=== PATIENT | male | born 1995 | race African-American/Black ===

== ENCOUNTER 2021-12-03 08:23 | Day surgery (SDC) | payer OTHER ==
[~2021-12-03] VITALS: Ht 175.3 cm; Wt 81.2 kg
[~2021-12-03 08:23] MED LIST: ceFAZolin SOD 2 GM in IV 1 EA IV ONE; vitamin
[2021-12-03] MEDS ORDERED: LR 1,000 ML IV SCH ×4 (08:50→15:15)
[2021-12-03] MEDS ORDERED: fentaNYL 100 MCG/2 ML INJECTION IV PRN ×2 (09:25→13:55)
[2021-12-03] MEDS ORDERED: ONDANSETRON 4MG/2ML VIAL IV PRN ×2 (09:25→13:55)
[2021-12-03] MEDS ORDERED: oxyCODONE 5MG TAB PO PRN ×2 (09:25→13:55)
[2021-12-03] MEDS ORDERED: METOCLOPRAMIDE INJ 10MG/2ML VIAL (J2765 PER 1) As Ordered ONE (11:14)
[2021-12-03] MEDS ORDERED: LIDOCAINE 2% 100MG/5ML SDV (FOR ANES.) As Ordered ONE (11:14)
[2021-12-03] MEDS ORDERED: MIDAZOLAM INJ 2MG/2ML VIAL (J2250 PER 1MG) As Ordered ONE (11:14)
[2021-12-03] MEDS ORDERED: fentaNYL 100 MCG/2 ML INJECTION As Ordered ONE (11:14)
[2021-12-03] MEDS ORDERED: propofoL 200 MG/20 ML VIAL As Ordered ONE (11:14)
[2021-12-03] MEDS ORDERED: KETOROLAC 60MG 2ML VIAL As Ordered ONE (11:14)
[2021-12-03] MEDS ORDERED: dexameTHASONE 4 MG/ML 1ML VIAL (J1100 PER 1MG) As Ordered ONE (11:14)
[2021-12-03] MEDS ORDERED: ONDANSETRON 4MG/2ML VIAL As Ordered ONE (11:14)
[2021-12-03] MEDS ORDERED: BUPIVACAINE/EPIN 0.25% 30 ML VIAL As Ordered ONE (12:02)
[2021-12-03] MEDS ORDERED: TRANEXAMIC ACID 100 MG/ML 10ML VIAL As Ordered ONE (12:25)
[2021-12-03] MEDS ORDERED: BUPIVACAINE LIPOSOME/PF 1.3% 20ML VIAL (13.3MG/ML)(EXPAREL) As Ordered ONE (12:34)
[2021-12-03 14:55] VITALS: BP 127/77
== END 2021-12-03 15:03 | disposition home or self-care (01) ==
LOC: M SDC 08:23
PROVIDERS: ATTEND Orthopaedic Surgery
DX: M79.A21 Nontraumatic compartment syndrome of right lower extremity (principal)
CPT/HCPCS: 27892; C9290; J0690; J1100; J1885; J2250; J2405; J2765; J3010

== ENCOUNTER → 2022-04-22 | Outpatient (REF) | payer OTHER ==
[~2022-04-22] MED LIST changes: -ceFAZolin SOD 2 GM in IV 1 EA IV ONE
== END ==
LOC: M PLAIMG 10:44
PROVIDERS: ATTEND Internal Medicine
DX: R06.02 Shortness of breath (principal)

== ENCOUNTER 2022-09-08 20:07 | Inpatient (IN) | payer OTHER ==
[~2022-09-08] VITALS: Ht 175.3 cm; Wt 87.3 kg
[2022-09-08 20:45] LABS: BASO % 0.1 % (0.0-1.0); EOS % 0.2 % (0.0-3.0); HEMOGLOBIN 14.6 g/dl (13.5-17.5); LYMPH # 0.8 10^3/uL (1.5-5.0); LYMPH % 9.3 % (24.0-44.0); MEAN CORPUSCULAR HGB CONC 33.2 g/dl (32.0-36.5); MEAN CORPUSCULAR VOLUME 87.5 fl (80.0-96.0); MONO # 0.8 10^3/uL (0.0-0.8); MONO % 8.6 % (2.0-8.0); NEUTROPHILS # 7.4 10^3/uL (1.5-8.5); NEUTROPHILS % 81.4 % (36.0-66.0); PLATELET COUNT, AUTOMATED 215 10^3/uL (150-450); RED BLOOD COUNT 5.03 10^6/uL (4.30-6.10)
[2022-09-08 21:10] LABS: ALBUMIN 3.9 G/DL (3.2-5.2); ALKALINE PHOSPHATASE 84 U/L (46-116); ALT/SGPT 38 U/L (7.0-40); AST/SGOT 27 U/L (<34); BILIRUBIN,TOTAL 0.8 MG/DL (0.3-1.2); BLOOD UREA NITROGEN 11 MG/DL (9-23); CALCIUM LEVEL 8.6 MG/DL (8.5-10.1); CARBON DIOXIDE LEVEL 27 MMOL/L (20-31); CHLORIDE LEVEL 103 MMOL/L (98-107); CREATININE FOR GFR 0.92 MG/DL (0.70-1.30); GLOMERULAR FILTRATION RATE > 60.0 (>60); GLUCOSE, FASTING 122 MG/DL (60-100); POTASSIUM SERUM 3.7 MMOL/L (3.5-5.1); SODIUM LEVEL 139 MMOL/L (136-145); TOTAL PROTEIN 7.3 G/DL (5.7-8.2)
[2022-09-09] MEDS ORDERED: ONDANSETRON 4MG ORAL DISINTEGRATING TAB PO ONE
[2022-09-09] MEDS ORDERED: MORPHINE 2 MG/ML 1ML VIAL IV PRN ×2 (01:30→06:00)
[2022-09-09] MEDS ORDERED: ISOVUE-370 76% 100ML VIAL As Ordered ONE (01:35)
[2022-09-09] MEDS ORDERED: HOME MED LIST COMPLETE! XX SCH (02:20)
[2022-09-09 03:06] LABS: RSV AMPLIFICATION NEGATIVE (NEGATIVE)
[2022-09-09 03:58] LABS: LIPASE 22 U/L (12-53)
[2022-09-09] MEDS ORDERED: PROMETHAZINE 25MG/ML 1ML VIAL IV PRN (04:10)
[2022-09-09 04:41] VITALS: BP 122/76
[2022-09-09] MEDS: NS 1,000 ML IV SCH ×2 (04:55→11:52)
[2022-09-09 07:36] LABS: BASO % 0.1 % (0.0-1.0); EOS % 0.4 % (0.0-3.0); HEMATOCRIT 40.7 % (42.0-52.0); HEMOGLOBIN 13.6 g/dl (13.5-17.5); LYMPH # 1.3 10^3/uL (1.5-5.0); LYMPH % 19.1 % (24.0-44.0); MEAN CORPUSCULAR HEMOGLOBIN 29.4 pg (27.0-33.0); MEAN CORPUSCULAR HGB CONC 33.4 g/dl (32.0-36.5); MEAN CORPUSCULAR VOLUME 88.1 fl (80.0-96.0); MONO # 0.7 10^3/uL (0.0-0.8); MONO % 10.3 % (2.0-8.0); NEUTROPHILS # 4.8 10^3/uL (1.5-8.5); NEUTROPHILS % 69.8 % (36.0-66.0); PLATELET COUNT, AUTOMATED 185 10^3/uL (150-450); RED BLOOD COUNT 4.62 10^6/uL (4.30-6.10); WHITE BLOOD COUNT 6.9 10^3/uL (4.0-10.0)
[2022-09-09 08:03] LABS: BLOOD UREA NITROGEN 7 MG/DL (9-23); CALCIUM LEVEL 8.1 MG/DL (8.5-10.1); CARBON DIOXIDE LEVEL 28 MMOL/L (20-31); CHLORIDE LEVEL 103 MMOL/L (98-107); CREATININE FOR GFR 0.82 MG/DL (0.70-1.30); GLOMERULAR FILTRATION RATE > 60.0 (>60); GLUCOSE, FASTING 98 MG/DL (60-100); MAGNESIUM LEVEL 1.7 MG/DL (1.8-2.4); POTASSIUM SERUM 3.6 MMOL/L (3.5-5.1); SODIUM LEVEL 138 MMOL/L (136-145)
[2022-09-09] MEDS ORDERED: MAGNESIUM OXIDE 400MG TAB (MAG-OX) PO ONE (08:15)
[2022-09-09] MEDS: ENOXAPARIN 40MG/0.4ML SYRINGE (J1650 PER 10MG) SC SCH ×2 (08:32→08:36)
[2022-09-09] MEDS ORDERED: ONDA4TAB6 PO (11:20)
[2022-09-09] MEDS ORDERED: HEPARIN SOD (PORCINE) 5000UNITS/ML 1ML VIAL/SYRINGE SC SCH (12:15)
[2022-09-09] MEDS ORDERED: PROT1TAB2 PO (13:29)
== END 2022-09-09 15:20 | disposition home or self-care (01) | DRG 392 ==
LOC: M ED 20:07 → M ED INP 09-09 03:34 → M MS5PR 09-09 04:42
PROVIDERS: ADMIT Family Medicine; ATTEND Family Medicine
DX: A08.39 Other viral enteritis (principal); K52.9 Noninfective gastroenteritis and colitis, unspecified; Z20.822 Contact with and (suspected) exposure to COVID-19

== ENCOUNTER 2022-09-25 09:59 | Emergency (ER) | payer OTHER ==
[~2022-09-25] VITALS: Ht 175.3 cm; Wt 85.9 kg
[~2022-09-25 09:59] MED LIST changes: +ONDA4TAB6 PO; +PROT1TAB2 PO
[2022-09-25 12:49] LABS: BASO # 0.1 10^3/uL (0.0-0.2); BASO % 0.4 % (0.0-1.0); EOS # 0.1 10^3/uL (0.0-0.5); EOS % 0.6 % (0.0-3.0); HEMATOCRIT 42.4 % (42.0-52.0); HEMOGLOBIN 14.2 g/dl (13.5-17.5); LYMPH # 2.7 10^3/uL (1.5-5.0); LYMPH % 15.8 % (24.0-44.0); MEAN CORPUSCULAR HEMOGLOBIN 29.3 pg (27.0-33.0); MEAN CORPUSCULAR HGB CONC 33.5 g/dl (32.0-36.5); MEAN CORPUSCULAR VOLUME 87.4 fl (80.0-96.0); NEUTROPHILS # 12.3 10^3/uL (1.5-8.5); NEUTROPHILS % 71.6 % (36.0-66.0); PLATELET COUNT, AUTOMATED 187 10^3/uL (150-450); RED BLOOD COUNT 4.85 10^6/uL (4.30-6.10); WHITE BLOOD COUNT 17.1 10^3/uL (4.0-10.0)
[2022-09-25] MEDS ORDERED: NS 1,000 ML IV ONE (13:00)
[2022-09-25] MEDS ORDERED: KETOROLAC 30 MG/ML 1ML VIAL IV ONE (13:00)
[2022-09-25 13:10] LABS: MONO # 1.9 10^3/uL (0.0-0.8)
[2022-09-25 13:13] LABS: BILIRUBIN,DIRECT 0.2 MG/DL (<0.4); BILIRUBIN,TOTAL 0.6 MG/DL (0.3-1.2); TOTAL PROTEIN 7.9 G/DL (5.7-8.2)
[2022-09-25] MEDS ORDERED: ISOVUE-370 76% 100ML VIAL As Ordered ONE (14:20)
[2022-09-25] MEDS ORDERED: metroNIDAZOLE (FLAGYL) 500MG TABLET PO ONE (15:25)
[2022-09-25] MEDS ORDERED: CIPROFLOXACIN 500MG TABLET PO ONE (15:25)
[2022-09-25] MEDS ORDERED: METR-265 PO (15:28)
[2022-09-25] MEDS ORDERED: CIPR-249 PO (15:28)
[2022-09-25 15:56] VITALS: BP 130/64
[2022-09-25 16:00] LABS: ERYTHROCYTE SEDIMENTATION RATE 58 mm/hr (0-15)
== END 2022-09-25 16:02 | disposition home or self-care (01) ==
LOC: M ED 09:59
DX: K52.9 Noninfective gastroenteritis and colitis, unspecified (principal); Z79.899 Other long term (current) drug therapy
CPT/HCPCS: 74177; 80047; 80076; 81001; 83690; 85025; 85652; 86140; 87507; 96374; 96375; 99284; J1100; J1885; Q9967

== ENCOUNTER → 2022-11-25 | Outpatient (REF) | payer OTHER ==
[~2022-11-25] MED LIST changes: +CIPR-249 PO; +METR-265 PO
== END ==
LOC: M LAB REF 10:26
PROVIDERS: ATTEND Internal Medicine Gastroenterology
DX: R19.4 Change in bowel habit (principal)

== ENCOUNTER 2022-12-11 13:21 | Day surgery (SDC) | payer OTHER ==
[~2022-12-11] VITALS: Ht 177.8 cm; Wt 77.1 kg
[~2022-12-11 13:21] MED LIST changes: +NS 1,000 ML IV ONE
[2022-12-11] MEDS ORDERED: LIDOCAINE 2% 100MG/5ML SDV (FOR ANES.) As Ordered ONE (14:57)
[2022-12-11] MEDS ORDERED: propofoL 200 MG/20 ML VIAL As Ordered ONE ×2 (14:57→15:06)
[2022-12-11] MEDS ORDERED: fentaNYL 100 MCG/2 ML INJECTION As Ordered ONE (14:57)
[2022-12-11 15:51] VITALS: TEMP 97.3
[2022-12-11 16:23] VITALS: BP 133/73; O2SAT 96
== END 2022-12-11 16:38 | disposition home or self-care (01) ==
LOC: M OPP 13:21
PROVIDERS: ATTEND Internal Medicine Gastroenterology
DX: K63.5 Polyp of colon (principal); R10.84 Generalized abdominal pain; R19.4 Change in bowel habit; R93.3 Abnormal findings on diagnostic imaging of other parts of digestive tract; R10.13 Epigastric pain; K29.70 Gastritis, unspecified, without bleeding; R19.7 Diarrhea, unspecified
CPT/HCPCS: 43239; 45380; 45385; 88305; J3010

== ENCOUNTER → 2023-01-07 | Outpatient (CLI) | payer OTHER ==
[~2023-01-07] MED LIST changes: +E-Z-PAQUE 96% w/w SUSP 176GM BTL As Ordered ONE; -NS 1,000 ML IV ONE
== END ==
LOC: M RAD 09:09
PROVIDERS: ATTEND Internal Medicine Gastroenterology
DX: R93.3 Abnormal findings on diagnostic imaging of other parts of digestive tract (principal)

== ENCOUNTER → 2023-05-19 | Outpatient (CLI) | payer OTHER ==
[~2023-05-19] MED LIST changes: -E-Z-PAQUE 96% w/w SUSP 176GM BTL As Ordered ONE
== END ==
LOC: M SLEEP 20:00
PROVIDERS: ATTEND Nurse Practitioner Family
DX: G47.33 Obstructive sleep apnea (adult) (pediatric) (principal)